=== PATIENT | male | born 1995 | race Caucasian/White ===

== ENCOUNTER 2019-01-03 21:00 | Emergency (ER) | payer OTHER ==
[2019-01-03] MEDS ORDERED: SODIUM CHLORIDE 1,000 ML IV STA (21:04)
--- NOTE | 2019-01-03 21:04 | PDOC ---
Rapid Medical Evaluation Time Seen by Provider: 01/03/19 21:02 Medical Evaluation: Allergies Allergy/AdvReac Type Severity Reaction Status Date / Time No Known Allergies Allergy Verified 04/27/15 05:07 01/03/19 21:02 I have performed a brief in-person evaluation of this patient. The patient presents with a chief complaint of: diffuse abdominal pain with diarrhea x1 week Pertinent physical exam findings: abd SNTND. I have ordered the following: abd w/u The patient will proceed to the ED for further evaluation. Discharge Disposition - Diagnosis Abdominal pain - Referrals - Patient Instructions - Post Discharge Activity
[2019-01-03 21:06] VITALS: BP 106/56; PULSE 72; TEMP 98.2; BMI 28.3
[2019-01-03 21:40] LABS: BASO % 1.1 % (0-2.0); EOS % 3.4 % (0-4.5); HEMATOCRIT 40.4 % (35.4-49); HEMOGLOBIN 13.5 GM/dL (11.7-16.9); LYMPH % 29.7 % (8-40); MCH 28.1 pg (25.7-33.7); MCHC 33.4 g/dl (32.0-35.9); MEAN CELL VOLUME 84.3 fl (80-96); MEAN PLT VOLUME 8.4 fl (7.5-11.1); MONO % 13.7 % (3.8-10.2); NEUT % 52.1 % (42.8-82.8); PLATELET COUNT 247 K/MM3 (134-434); RBC 4.79 M/mm3 (4.00-5.60); RDW 13.3 % (11.9-15.9); WHITE BLOOD COUNT 7.1 K/mm3 (4.0-10.0)
[2019-01-03 21:42] LABS: PH,URINE 5.5 (5.0-8.0); URINE APPEARANCE CLEAR; URINE BILIRUBIN NEGATIVE (NEGATIVE); URINE COLOR YELLOW; URINE GLUCOSE (UA) NEGATIVE (NEGATIVE); URINE KETONE TRACE (NEGATIVE); URINE LEUK ESTERASE NEGATIVE (NEGATIVE); URINE NITRITE NEGATIVE (NEGATIVE); URINE PROTEIN NEGATIVE (NEGATIVE); URINE UROBILINOGEN 0.2 mg/dL (0.2-1.0)
--- NOTE | 2019-01-03 22:06 | PDOC ---
History of Present Illness - General Chief Complaint: Pain Stated Complaint: ABD PAIN Time Seen by Provider: 01/03/19 21:02 Past History - Past Medical History Allergies/Adverse Reactions: Allergies Allergy/AdvReac Type Severity Reaction Status Date / Time No Known Allergies Allergy Verified 01/03/19 21:02 Home Medications: Ambulatory Orders Dicyclomine HCl [Bentyl -] 20 mg PO Q8H #21 tablet 04/27/15 Ondansetron [Zofran Odt -] 4 mg SL TID #10 od.tablet 01/04/19 Ranitidine [Zantac -] 150 mg PO BID #14 tablet 01/04/19 COPD: No - Surgical History Appendectomy: Yes - Suicide/Smoking/Psychosocial Hx Smoking History: Never smoked Have you smoked in the past 12 months: No Hx Alcohol Use: No Drug/Substance Use Hx: No Substance Use Type: None *Physical Exam - Vital Signs Last Vital Signs Temp Pulse Resp BP Pulse Ox 98.2 F 72 18 106/56 L 100 01/03/19 21:03 01/03/19 21:03 01/03/19 21:03 01/03/19 21:03 01/03/19 21:03 ED Treatment Course - LABORATORY CBC & Chemistry Diagram: 01/03/19 21:29 01/03/19 21:29 - ADDITIONAL ORDERS Additional order review: Laboratory Results 01/03/19 21:29 Urine Color Yellow Urine Appearance Clear Urine pH 5.5 Ur Specific [place] 1.029 Urine Protein Negative Urine Glucose (UA) Negative Urine Ketones Trace H Urine Blood Negative Urine Nitrite Negative Urine Bilirubin Negative Urine Urobilinogen 0.2 Ur Leukocyte Esterase Negative 01/03/19 21:29 RBC 4.79 MCV 84.3 MCHC 33.4 RDW 13.3 MPV 8.4 Neutrophils % 52.1 Lymphocytes % 29.7 Monocytes % 13.7 H Eosinophils % 3.4 Basophils % 1.1 Medical Decision Making - Medical Decision Making 01/04/19 00:28 The patient is a 23 y/o M with no PMH who presents to the ER with one week of abdominal pain. The patient states that he started with upper abdominal pain one week ago with associated vomiting and diarrhea. He states that the vomiting and diarrhea resolved itself after three days, but he states he is still having abdominal pain and it worse after eating. He notes that the pain is crampy after eating. Nothing makes it better. A/P: abdominal pain *DC/Admit/Observation/Transfer Diagnosis at time of Disposition: Abdominal pain Qualifiers: Abdominal location: upper abdomen, unspecified Qualified Code(s): R10.10 - Upper abdominal pain, unspecified - Discharge Dispostion Disposition: HOME Condition at time of disposition: Stable Decision to Admit order: No - Referrals Referrals: Racquel Najera MD [Primary Care Provider] - - Patient Instructions Printed Discharge Instructions: DI for Acute Abdomen Additional Instructions: You were evaluated for your abdominal pain today Your ultrasound of your gallbladder is normal. Your liver enzymes are elevated today; this needs to be followed up on by your primary care doctor Take zofran every 8 hours as needed for nausea Eat a bland diet such as plain rice, apple sauce, toast and bananas to rest your stomach Return to the ER for worsening pain, vomiting, fever, or if you have any changes in your symptoms - Post Discharge Activity Forms/Work/School Notes: Back to Work
[2019-01-03 22:07] LABS: ALBUMIN 3.7 g/dl (3.4-5.0); BILIRUBIN,TOTAL 0.2 mg/dL (0.2-1); CALCIUM 8.9 mg/dL (8.5-10.1); CREATININE 0.9 mg/dL (0.55-1.3); POTASSIUM 4.2 mmol/L (3.5-5.1); TOT PROT 7.2 g/dl (6.4-8.2)
[2019-01-03] MEDS ORDERED: ONDANSETRON 4 MG/2 ML VIAL IVPUSH ONE (22:14)
[2019-01-03] MEDS ORDERED: ACETAMINOPHEN 1000 MG/100 ML VIAL (NON FORMULARY) IVPB ONE (22:14)
[2019-01-03] MEDS ORDERED: ACETAMINOPHEN INJECTION 100 ML IVPB ONE (22:37)
[2019-01-03] MEDS ORDERED: ONDANSETRON 4 MG/2 ML VIAL ONE (22:37)
== END 2019-01-04 01:31 | disposition home or self-care (01) ==
LOC: JER 21:00
PROC: 3E033NZ Introduction of Analgesics, Hypnotics, Sedatives into Peripheral Vein, Percutaneous Approach (ICD-10-PCS; principal; 2019-01-03)
PROC: 3E033GC Introduction of Other Therapeutic Substance into Peripheral Vein, Percutaneous Approach (ICD-10-PCS; 2019-01-03)
PROC: 3E0337Z Introduction of Electrolytic and Water Balance Substance into Peripheral Vein, Percutaneous Approach (ICD-10-PCS; 2019-01-03)
DX: R10.10 Upper abdominal pain, unspecified (principal)
CPT/HCPCS: 36415; 76705-TC; 80053; 81003; 83690; 85025; 99283-25; J0131; J7030